=== PATIENT | female | born 1940 | race Caucasian/White ===

== ENCOUNTER 2021-11-27 07:43 | Outpatient (CLI) | payer MEDICARE, SELFPAY ==
[2021-11-27 10:40] LABS: SARS-CoV-2 RNA PCR Negative (Negative)
== END 2021-11-27 07:44 | disposition home or self-care (01) ==
LOC: CHSLAB 07:51
PROVIDERS: PCP Family Medicine; Visit Provider Family Medicine
DX: Z20.822 Contact with and (suspected) exposure to COVID-19 (principal)
CPT/HCPCS: C9803; U0003; U0005